=== PATIENT | female | born 1970 | race Caucasian/White ===

== ENCOUNTER 2018-07-04 09:34 | Day surgery (SDC) | payer OTHER ==
[~2018-07-04 09:34] MED LIST: CEFAZOLIN 2 GM/50 ML (PMX) 50 ML IVPB; SEVOFLURANE 15 MIN; SOD CHLORIDE 0.9% 1,000 ML IV
[2018-07-04] MEDS ORDERED: HEPARIN 1000 UNITS/ML 10 ML INJ (10:16)
[2018-07-04] MEDS ORDERED: FENTAnyl 50 MCG/ML VIAL IV (11:00)
[2018-07-04] MEDS ORDERED: DIPHENHYDRAMINE 50 MG INJ IV (11:00)
[2018-07-04] MEDS ORDERED: MEPERIDINE 25 MG INJ IV (11:00)
[2018-07-04] MEDS ORDERED: ONDANSETRON 4 MG INJ IV (11:00)
[2018-07-04] MEDS ORDERED: PROCHLORPERAZINE 10 MG INJ IV (11:00)
[2018-07-04] MEDS ORDERED: HYDROmorphONE 1 MG/5 ML IV SYRINGE IV ×3 (11:00)
[2018-07-04] MEDS ORDERED: PROPOFOL 20 ML (11:05)
[2018-07-04] MEDS ORDERED: LIDOCAINE 2% (SDV) 5 ML INJ (11:05)
[2018-07-04] MEDS ORDERED: MIDAZOLAM 1 MG/ML 2 ML INJ (11:05)
[2018-07-04] MEDS ORDERED: DEXAMETHASONE 4 MG/ML 5 ML INJ (11:18)
[2018-07-04] MEDS ORDERED: ONDANSETRON 4 MG INJ (11:18)
[2018-07-04] MEDS ORDERED: CEFAZOLIN 1 GM INJ (11:18)
[2018-07-04] MEDS ORDERED: FENTAnyl 50 MCG/ML VIAL (11:23)
[2018-07-04] MEDS ORDERED: EPHEDrine SULFATE 50 MG/5 ML SYG (11:28)
[2018-07-04] MEDS: OXYCODONE/ACETAMINOPHEN (5/325) TAB PO (12:55)
== END 2018-07-04 13:17 | disposition home or self-care (01) ==
LOC: SDS 09:34
DX: Z45.2 Encounter for adjustment and management of vascular access device (principal); Z85.3 Personal history of malignant neoplasm of breast; E78.5 Hyperlipidemia, unspecified
CPT/HCPCS: 36590; 88300